=== PATIENT | male | born 1955 | race Caucasian/White ===

== ENCOUNTER 2017-04-30 07:40 | Outpatient (CLI) | payer BC ==
--- NOTE | 2017-04-30 09:18 | CT ---
CONTRAST ENHANCED CT CHEST: Date: 04-30-17 Comparison: 01-29-17 FINDINGS: CT images demonstrate the left upper hilar soft tissue mass appears to have increased in size. 3D henri surements now measure 2.7 x 1.6 x approximately 1.9 cm. Previous 3D measurements measured approximate ly 1.3 x 1.7 x 1.3 cm. No other masses or lesions seen. No evidence of pulmonary parenchymal lesions seen. This has patient has had a previous right sided nephrectomy. IMPRESSION: Moderately enlarging left upper hilar mass. POS: [facility]
[2017-04-30] MEDS ORDERED: Iopamidol 250 51% 100 ML VIAL FS ONE (14:00)
== END 2017-04-30 07:41 | disposition home or self-care (01) ==
LOC: CT 07:40
PROVIDERS: ATTEND Internal Medicine Hematology & Oncology
DX: C64.9 Malignant neoplasm of unspecified kidney, except renal pelvis (principal); C78.39 Secondary malignant neoplasm of other respiratory organs
CPT/HCPCS: 71260

== ENCOUNTER 2017-07-02 08:01 | Outpatient (CLI) | payer BC ==
--- NOTE | 2017-07-02 10:42 | CT ---
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 Follow up of enlarging left lung mass. COMPARISON: Chest CT of 04-30-17 TECHNIQUE: IV iodinated contrast media: 100 ml of Isovue 370 FINDINGS: The left upper hilar soft tissue density mass with heterogeneous attenuation has minimally increased in size. Using different cursor placement than on the previous report, the prior dimensions were appr oximately 2.3 x 1.1 x 2.7 cm. The current dimensions are 2.7 x 1.4 x 2.9 cm. There are no other hilar , pulmonary, or mediastinal suspicious lesions. There is a tiny 0.4 cm noncalcified pulmonary nodule in the right middle lobe (axial image 26 of 68, series 3; coronal image 79 of 173, series 601), which has been stable since the 05-08-16 CT and is benign. No cardiomegaly, pericardial effusion, pleural effusion or pneumothorax. Essentially normal thoracic aorta. Absent right kidney. No adrenal mass. No hepatosplenomegaly. No destructive osseous lesion identified. IMPRESSION: 1. Minimal interval increase in size of the left superior hilar mass since 04-30-17. 2. No new suspicious lesions. 3. Status post right nephrectomy. BLAIR Landin POS: [facility]
[2017-07-02] MEDS ORDERED: Iopamidol 370 76% 100 ML VIAL ONE (14:21)
== END 2017-07-02 08:02 | disposition home or self-care (01) ==
LOC: CT 08:01
PROVIDERS: ATTEND Internal Medicine Hematology & Oncology
DX: C64.9 Malignant neoplasm of unspecified kidney, except renal pelvis (principal); C78.39 Secondary malignant neoplasm of other respiratory organs; R91.8 Other nonspecific abnormal finding of lung field; Z90.5 Acquired absence of kidney
CPT/HCPCS: 71260

== ENCOUNTER 2017-07-18 10:17 | Outpatient (CLI) | payer BC ==
[2017-07-18] MEDS ORDERED: Iopamidol 370 76% 100 ML VIAL ONE (11:50)
--- NOTE | 2017-07-18 13:00 | CT ---
CT HEAD WITH AND WITHOUT CONTRAST: Technique: Multiple axial tomograms were obtained through the head both pre and post IV contrast admi nistration. History: Follow up renal cancer. Assess for metastasis. Comparison: Head CT 06-22-16 FINDINGS: On the precontrast study there is no evidence of infarct, hemorrhage, or mass lesion. On post contrast images there is no abnormal enhancement. Sinuses and mastoids are well aerated. The bony calvarium is unremarkable. IMPRESSION: No acute abnormality. No evidence of metastasis identified. POS: [facility]
--- NOTE | 2017-07-18 13:38 | CT ---
CT ABDOMEN AND PELVIS WITH CONTRAST: Technique: Multiple axial tomograms were obtained through the abdomen and pelvis with IV enhancement. Oral contrast was given. Indications: History of renal neoplasm. malignancy to respiratory system. Assess for metastasis. Lovely rodriguez has a known left hilar mass which has been followed. Recent CT of 07-02-17 reveals mild interval i ncrease. Comparison: Abdomen and pelvic CT, 05-08-16 from [facility]. FINDINGS: There are at least four tiny hypodense lesions seen in the superior liver under the diaphragm. These are primarily in the left lobe but may also be one or two in the superior right lobe. These tiny hypo dense lesions are stable from the prior exam and would be most consistent with tiny hepatic cystic le sions. The liver is otherwise unremarkable. The spleen and pancreas are unremarkable. Stomach and duo denum are unremarkable. Adrenal glands are normal. Patient is post right nephrectomy. The left kidney is unremarkable. The sm all bowel loops appear unremarkable. Colon is unremarkable with scattered diverticula in the left col on. There is some stranding surrounding the mid descending colon at site of 2-3 large diverticula. Th is suggests prior inflammatory change from diverticulitis although I do not confirm active diverticul itis at this time. Recommend clinical correlation regarding left abdominal pain. The stranding at thi s site is new when compared to the prior study. Urinary bladder is mildly distended and unremarkable. Prostate is upper normal size. Aorta is normal caliber. No adenopathy is identified. There is a tiny lymph node seen in the aortocaval space just posterior t o the duodenum on Image 42 measuring 9 mm. This small lymph node is stable from prior exam. There are other tiny subcentimeter lymph nodes which are stable. Osseous structures are unremarkable. IMPRESSION: 1. Diverticula seen in the left colon. There is evidence of mild mural thickening and stranding surro unding one or two large diverticula in the mid left colon. This could represent changes from prior di verticulitis, however, I cannot exclude acute diverticulitis. There is no extraluminal fluid or absce ss. Recommend clinical correlation regarding pain at this site. 2. Tiny nonspecific paraaortic lymph nodes are stable. 3. Tiny low density lesions in the superior liver are unchanged and would be consistent with tiny cys ts. 4. Otherwise no evidence of interval change. POS: [facility]
--- NOTE | 2017-07-18 15:02 | NM ---
WHOLE BODY BONE SCAN: Date: 07/18/17 HISTORY: Kidney cancer, malignant neoplasm of upper respiratory organs. RADIOPHARMACEUTICAL: 30 mCi technetium-99m MDP injected intravenously. COMPARISON: 06/22/16. CORRELATION: CT abdomen/pelvis of 07/18/[address] chest of 07/02/17. FINDINGS: Degenerative changes in the spine, shoulders, knees, ankles, and feet are again seen. No new foci of abnormally increased tracer localization seen in the skeleton. The patient is status post right nephr ectomy. Tracer excretion through the left kidney is within normal limits. IMPRESSION: No evidence of osseous metastatic disease. POS: [facility]
== END 2017-07-18 10:18 | disposition home or self-care (01) ==
LOC: NM 10:17
PROVIDERS: ATTEND Internal Medicine Hematology & Oncology
DX: C64.9 Malignant neoplasm of unspecified kidney, except renal pelvis (principal); C78.39 Secondary malignant neoplasm of other respiratory organs; K57.30 Diverticulosis of large intestine without perforation or abscess without bleeding; K76.89 Other specified diseases of liver
CPT/HCPCS: 70470; 74177; 78306; A9503

== ENCOUNTER 2017-10-14 08:13 | Outpatient (CLI) | payer BC ==
[~2017-10-14 08:13] MED LIST: Iopamidol 370 76% 100 ML VIAL ONE
--- NOTE | 2017-10-14 10:55 | CT ---
CT CHEST WITH CONTRAST: History: Z10.52, Z85.528 malignant neoplasm of kidneys Comparison: CT chest 07-02-17 FINDINGS: Using the same plane of reference, the left suprahilar mass measures approximately 2.8 x 1.9 cm, prev iously 2.6 x 1.4 cm. There are foci of central internal necrosis within the suprahilar mass. There are enlarging AP window lymph nodes measuring up to 9 mm in short axis, previously less than 4 mm in short axis. Smaller pretracheal lymph node appears to have more enhancement than on the prior e xamination, measuring approximately 7 mm in short axis, previously 5 mm. No pericardial effusion. Aor tic size and pulmonary arterial size are both normal. Prior right nephrectomy. 3 mm right upper lobe pulmonary nodule is similar. Small 3 mm nodule in the anterior right lower lobe is similar. There is, however, a new nodule within the posterior segment ri ght upper lobe measuring 3 mm. No pneumothorax. No pleural effusion. No other new nodule. No suspicious lytic or blastic lesion in the skeleton. IMPRESSION: Mild size increase in size left suprahilar mass as well as a new posterior segment right upper lobe p ulmonary nodule. Findings concerning for progression of disease. POS: [facility]
== END 2017-10-14 08:14 | disposition home or self-care (01) ==
LOC: CT 08:13
PROVIDERS: ATTEND Internal Medicine Hematology & Oncology
DX: C78.39 Secondary malignant neoplasm of other respiratory organs (principal); Z85.528 Personal history of other malignant neoplasm of kidney
CPT/HCPCS: 71260; 82565

== ENCOUNTER 2018-01-13 | Outpatient (CLI) | payer BC | END 2018-01-13 08:05 | disposition home or self-care (01) | DX: C78.39 Secondary malignant neoplasm of other respiratory organs (principal); R91.8 Other nonspecific abnormal finding of lung field; Z85.528 Personal history of other malignant neoplasm of kidney ==

== ENCOUNTER 2018-07-11 08:28 | Outpatient (CLI) | payer BC ==
[2018-07-11] MEDS ORDERED: Iopamidol 370 76% 100 ML VIAL ONE (09:47)
--- NOTE | 2018-07-11 11:40 | CT ---
CT THORAX WITH IV CONTRAST: CT ABDOMEN WITH IV CONTRAST: 07/11/2018 HISTORY: Malignant neoplasm of kidney. Secondary malignant neoplasm of other respiratory organs. The patient is post radiation therapy. COMPARISON: 01/13/2018 FINDINGS: THORAX: The previously noted right hilar mass is smaller in size, previously measuring 3.6 cm x 2.4 cm, and now measuring 2.6 cm x 2 cm. However, there has been interval development of rounded opaciti es within the region of the lingula, as well as several areas within the left lower lobe, which could be related to radiation pneumonitis, as there are fiducial markers seen in the left hilar region. Ho wever, infectious pneumonitis is also a possibility. Continued followup is recommended. A few small er, nodular densities, which also demonstrate a patchy appearance, are also seen within the left lowe r lobe. Previously noted tiny 4 mm pulmonary nodule in the right upper lobe (image 24 of 37) and in the later al aspect of the right lower lobe (image 28 of 37) are again seen and are unchanged in size. There is no evidence of lymphadenopathy. ABDOMEN: There are post surgical changes related to right nephrectomy again present. The left kidne y demonstrates a normal CT appearance, and no renal mass is appreciated. The spleen, pancreas, and bilateral adrenal glands demonstrate a normal CT appearance. Again noted are a few tiny, subcentimeter, hypodense areas within the lateral segment of the left hep atic lobe and in the dome of the liver, which are stable and too small to accurately characterize. T hese hypodensities are also stable, compared to a CT abdomen obtained from [facility] on 05/08/2016. Opacified bowel demonstrates a normal CT appearance. There is colonic diverticulosis. Vascular calcifications are seen in the abdominal aorta. There is no evidence of lymphadenopathy, free fluid, or fluid collection seen in the abdomen. Small fat-containing umbilical hernia is present. Incidental note is made of a retroaortic left renal vein. IMPRESSION: 1. The left suprahilar mass is again seen but smaller in size compared to the prior examination. Th ere are fiducial markers now seen adjacent to the mass. 2. Interval development of patchy areas of parenchymal density within the region of the lingula, as well as in the left lower lobe, which could be related to areas of radiation pneumonitis and/or infec tious pneumonitis. Followup is recommended. 3. Stable, 4 mm pulmonary nodules within the right upper lobe and right lower lobe. No new discrete pulmonary nodule is seen. 4. Stable tiny, subcentimeter, hypodense lesions within the left hepatic lobe. 5. Post surgical changes related to right nephrectomy. 6. Colonic diverticulosis. 7. Small fat-containing umbilical hernia. POS: [facility]
== END 2018-07-11 08:29 | disposition home or self-care (01) ==
LOC: SCSCT 08:28 → CT 08:29
PROVIDERS: ATTEND Internal Medicine Hematology & Oncology
DX: C64.9 Malignant neoplasm of unspecified kidney, except renal pelvis (principal); C78.39 Secondary malignant neoplasm of other respiratory organs; K42.9 Umbilical hernia without obstruction or gangrene; K57.30 Diverticulosis of large intestine without perforation or abscess without bleeding; K76.9 Liver disease, unspecified; R91.8 Other nonspecific abnormal finding of lung field; R22.2 Localized swelling, mass and lump, trunk
CPT/HCPCS: 71260; 74160; 82565; Q9967

== ENCOUNTER 2018-12-08 10:33 | Outpatient (CLI) | payer BC ==
--- NOTE | 2018-12-08 12:36 | CT ---
CT chest with IV contrast CT abdomen and pelvis with IV contrast HISTORY: Right renal cancer with nephrectomy. Metastatic disease. Restaging. COMPARISON: 07/12/2018. FINDINGS: The irregular mass at the left hilum now measures 3.6 cm x 2.7 cm on the axial images (prev iously 2.6 cm x 2.0 cm). Areas of parenchymal lung infiltrate predominantly involving the interstitium in the left lower lobe have become larger than on the prior exam. Possibly related to ra diation pneumonitis. The tiny nodules within the right upper lobe and right lower lobe from the previous study are stable. There has developed within the right upper and middle, however, predominantly central parenchymal infiltrate-like opacity that is similar to the left lower lobe abnormality (that has also worsened). At the right posterior lung base, too small foci of groundglass nodularity are 1.3 cm and 1.4 cm greatest diameters. The tiny nonspecific low-density lesions within the left liver lobe are stable. Right kidney is surgi magui absent. Circumaortic left renal vein is again demonstrated. At the body of the left adrenal gland, an oval soft tissue density nodule is now apparent, measuring up to 2.4 cm length by 1.3 cm width. A similar appearing oval homogeneous soft tissue density mass of the right adrenal gland is 2.3 cm x 2.2 cm. IMPRESSION: Slight interval enlargement of the left hilar mass and worsening of coarse, predominantly interstitial infiltrates of the left lower lobe and right upper and middle lobes. New oval groundglass opacities at the right lower lobe could reflect the same interstitial process seen in lar vadim areas of each lung. New soft tissue density metastases associated with each adrenal gland.
--- NOTE | 2018-12-08 12:49 | CT ---
CT chest with IV contrast CT abdomen and pelvis with IV contrast HISTORY: Right renal cancer with nephrectomy. Metastatic disease. Restaging. COMPARISON: 07/12/2018. FINDINGS: The irregular mass at the left hilum now measures 3.6 cm x 2.7 cm on the axial images (prev iously 2.6 cm x 2.0 cm). Areas of parenchymal lung infiltrate predominantly involving the interstitium in the left lower lobe have become larger than on the prior exam. Possibly related to ra diation pneumonitis. The tiny nodules within the right upper lobe and right lower lobe from the previous study are stable. There has developed within the right upper and middle, however, predominantly central parenchymal infiltrate-like opacity that is similar to the left lower lobe abnormality (that has also worsened). At the right posterior lung base, too small foci of groundglass nodularity are 1.3 cm and 1.4 cm greatest diameters. The tiny nonspecific low-density lesions within the left liver lobe are stable. Right kidney is surgi magui absent. Circumaortic left renal vein is again demonstrated. At the body of the left adrenal gland, an oval soft tissue density nodule is now apparent, measuring up to 2.4 cm length by 1.3 cm width. A similar appearing oval homogeneous soft tissue density mass of the right adrenal gland is 2.3 cm x 2.2 cm. IMPRESSION: Slight interval enlargement of the left hilar mass and worsening of coarse, predominantly interstitial infiltrates of the left lower lobe and right upper and middle lobes. New oval groundglass opacities at the right lower lobe could reflect the same interstitial process seen at the larger abnormal areas in each lung. New soft tissue density metastases associated with each adrenal gland. Transcribed Date/Time: 12/08/2018 12:48 PM
== END 2018-12-08 10:34 | disposition home or self-care (01) ==
LOC: SCSCT 10:33
PROVIDERS: ATTEND Internal Medicine Hematology & Oncology
DX: C64.9 Malignant neoplasm of unspecified kidney, except renal pelvis (principal); C78.39 Secondary malignant neoplasm of other respiratory organs; R91.8 Other nonspecific abnormal finding of lung field
CPT/HCPCS: 71260; 74160; Q9967

== ENCOUNTER 2019-01-21 08:29 | Outpatient (CLI) | payer BC ==
[2019-01-21] MEDS ORDERED: Iopamidol 370 76% 100 ML VIAL ONE (09:00)
--- NOTE | 2019-01-21 10:19 | CT ---
CT CHEST WITH CONTRAST: CT ABDOMEN WITH CONTRAST: HISTORY: Metastatic renal cancer. COMPARISON: 12/08/2018 FINDINGS: CHEST: Stable enlarged precarinal lymph node with a preserved fatty hilum, measuring 1.0 x 1.9 cm. No mediastinal mass or hematoma. Heart size is normal. No significant pericardial fluid. Aorta: Normal caliber. No aneurysm, dissection or periaortic fat stranding. Trachea and central bronchi: Clear. Pleural spaces: No pleural effusion. Pneumothorax: None. Right lung: Consolidation with air bronchograms in the inferior aspect of the right upper lobe, worr isome for infiltrate. Additional patchy ground glass, irregular appearing opacities are noted and may represent infiltrative foci. Newly developed opacity with air bronchogram in the right lower lob e, measuring 2.6 x 4.0 cm, may represent a focal infiltrate. New 4 and 5 mm nodules in the right lower lobe. Stable 6 mm nodule in the right upper lobe. New 4 mm nodule in the lateral aspect of th e right upper lobe. Left lung: Stable consolidation with hyperdensities in the left hilum, likely representing post shira tment change. Left hilar opacity measures 3.6 x 4.2 cm. There is extension into the left infrahilar region with a persistent opacity that measures 3.8 x 3.2 cm. There are ground glass opaci ties in the right lower lobe. The degree of alveolar opacification has decreased. Additional patchy ground glass opacities are noted in the left upper lobe. ABDOMEN: Liver, spleen, pancreas and right adrenal gland are essentially unchanged. There is eviden ce of right adrenal gland hyperplasia. There is a nodule in the left adrenal gland measuring 4.0 x 1.6 cm, previously measuring 1.4 x 1.0 cm. No gastrohepatic, retrocrural or periportal lymphadenopat hy. Visualized alimentary canal is unremarkable. Appropriate enhancement of the left kidney. No evidence of obstructive uropathy. Osseous structures: There are no lytic or blastic lesions in the osseous structures. IMPRESSION: 1. Interval development of a ground glass opacity with air bronchograms in the right lower lobe, whi ch may represent a focal infiltrate. There is evidence of new nodules in the right lower lobe, which may represent metastases. There is a new nodule in the right upper lobe, also worrisome for me tastases. 2. Presumed post treatment changes in the left hilum. Improved aeration of the left lower lobe. Re sidual opacities may represent post treatment change. 3. Interval development of consolidation with air bronchograms in the right upper lobe, worrisome fo r infection. 4. Interval increase in size of a left adrenal nodule, worrisome for metastases until proven otherwi se. Transcribed Date/Time: 01/21/2019 10:28 AM
== END 2019-01-21 08:30 | disposition home or self-care (01) ==
LOC: SCSCT 08:29
PROVIDERS: ATTEND Internal Medicine Hematology & Oncology
DX: C64.9 Malignant neoplasm of unspecified kidney, except renal pelvis (principal); C78.39 Secondary malignant neoplasm of other respiratory organs; R91.8 Other nonspecific abnormal finding of lung field; E27.8 Other specified disorders of adrenal gland
CPT/HCPCS: 71260; 74160; Q9967

== ENCOUNTER 2019-02-02 12:31 | Outpatient (CLI) | payer BC ==
--- NOTE | 2019-02-02 13:09 | RAD ---
EXAM: Chest 2 views: HISTORY: Malignant neoplasm of the kidney; cough COMPARISON: CT chest 01/21/2019 FINDINGS: There is a normal-sized cardiomediastinal silhouette. Consolidation is seen in the right upper and lo wer lobes. No pleural effusion is seen. The bones are unremarkable. IMPRESSION: Right-sided pulmonary infiltrates
--- NOTE | 2019-02-02 14:05 | CT ---
Exam: Pre and postcontrast head CT COMPARISON: 07/18/2017 HISTORY: Malignant neoplasm of the kidney with metastases FINDINGS: Noncontrast head CT: No parenchymal hemorrhage No extra-axial hematoma No midline shift Basilar cisterns are patent Brain volume is age-appropriate Cortical wilder-white matter differentiation is preserved No evidence of hydrocephalus Calvarium is intact Adequate aeration of the sinuses and air cells Postcontrast brain CT: No pathologic enhancement of the brain IMPRESSION: 1. No pathologic enhancement the brain parenchyma 2. No acute intracranial process
== END 2019-02-02 12:32 | disposition home or self-care (01) ==
LOC: SCSCT 12:31
PROVIDERS: ATTEND Internal Medicine Hematology & Oncology
DX: C64.9 Malignant neoplasm of unspecified kidney, except renal pelvis (principal); C78.39 Secondary malignant neoplasm of other respiratory organs; R05 Cough; R91.8 Other nonspecific abnormal finding of lung field
CPT/HCPCS: 70470; 71046; Q9967

== ENCOUNTER 2019-02-09 09:02 | Outpatient (CLI) | payer BC ==
--- NOTE | 2019-02-09 11:08 | RAD ---
PA AND LATERAL CHEST: HISTORY: Pneumonia. Evaluation followup. COMPARISON: 02/02/2019 study. FINDINGS: Heart size is within normal limits. Surgical clips are seen in the left hilar region. The pleural a nd parenchymal changes in the left base are stable. The right-sided infiltrative changes of the righ t upper and lower lung agustin show some mild improvement. IMPRESSION: Slight improvement to the right-sided infiltrative lung change. Findings telephoned to Dr. Pena. CODE CR POS: [facility]
== END 2019-02-09 09:03 | disposition home or self-care (01) ==
LOC: SCSRAD 09:02
PROVIDERS: ATTEND Internal Medicine Hematology & Oncology
DX: R91.8 Other nonspecific abnormal finding of lung field (principal)
CPT/HCPCS: 71046

== ENCOUNTER 2019-04-01 10:34 | Outpatient (CLI) | payer BC ==
--- NOTE | 2019-04-01 11:14 | RAD ---
CHEST PA AND LATERAL: HISTORY: Cancer. Right lung infiltrate. COMPARISON: 02/09/2019, 02/02/2019. FINDINGS: Heart: Normal cardiac silhouette. Aorta: Unremarkable. Pulmonary vessels: Normal. Costophrenic angles: Costophrenic angles are clear. Lungs: Redemonstration of infiltrates in the right lung. The degree of opacification has progressed w hen compared to the most recent prior exam. Additionally, there appear to be linear opacities in the left perihilar region which appear to be stable. Surgical clips project over the left hilum. Pneumothorax: No pneumothorax. Osseous structures: No osseous abnormalities. IMPRESSION: Worsening opacification the right lung. CODE T Transcribed Date/Time: 04/01/2019 12:13 PM
== END 2019-04-01 10:35 | disposition home or self-care (01) ==
LOC: SCSRAD 10:34
PROVIDERS: ATTEND Internal Medicine Hematology & Oncology
DX: R91.8 Other nonspecific abnormal finding of lung field (principal)
CPT/HCPCS: 71046

== ENCOUNTER 2019-05-05 08:29 | Outpatient (CLI) | payer BC ==
--- NOTE | 2019-05-05 12:14 | CT ---
CT CHEST WITH IV CONTRAST: CT ABDOMEN WITH IV CONTRAST: CT PELVIS WITH IV CONTRAST: HISTORY: Malignant neoplasm of kidney. Secondary malignant neoplasm of other respiratory organs. COMPARISON: 01/21/2019 FINDINGS: No evidence of mediastinal, hilar or axillary mass or lymphadenopathy is seen. No pleural or pericard ial effusions are noted. The patchy areas of consolidation in the right upper lobe demonstrate interval improvement however th ere are new smaller patchy areas of ground glass opacities in the lungs bilaterally which are new sin ce the last exam. A patchy area of consolidation in the left upper lobe is also new. A few new nodules are noted in the left upper lobe and lingula, measuring up to 1 cm. There are new patchy opacities in the lung bases. Left hilar/perihilar consolidative change with tiny hyperdensities are stable, likely representing po st treatment change. The spleen and pancreas appear normal. Small low density lesions in the liver are stable. No calcifie d gallstones are seen. No free air, free fluid or lymphadenopathy is seen in the abdomen or pelvis. The patient is post right nephrectomy. 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 The right adrenal mass measures 4 x 2.5 cm (previously 2.5 x 2 cm) and the left adrenal mass measures 2.5 x 3 cm (previously 1.4 x 1.6 cm). The small bowel loops are not abnormally dilated. There is mild colonic diverticulosis. The prostate is enlarged. A normal appearing appendix is seen. There are vascular calcifications without evidence of aneurysmal dilatation of the thoracoabdominal a odin. There are degenerative changes in the spine. No osteolytic or osteoblastic lesions are seen. IMPRESSION: 1. Mixed response to therapy in the chest. 2. Interval increase in size of the adrenal masses since the previous study. Discussed over the telephone with Dr. Arti Pena at 12:02 p.m. CODE CR POS: [facility]
== END 2019-05-05 08:30 | disposition home or self-care (01) ==
LOC: SCSCT 08:29
PROVIDERS: ATTEND Internal Medicine Hematology & Oncology
DX: C78.39 Secondary malignant neoplasm of other respiratory organs (principal); C64.9 Malignant neoplasm of unspecified kidney, except renal pelvis; E27.8 Other specified disorders of adrenal gland
CPT/HCPCS: 71260; 74177

== ENCOUNTER 2019-05-06 12:17 | Outpatient (CLI) | payer BC ==
--- NOTE | 2019-05-06 15:03 | RAD ---
XR Chest Pa Lat STANDARD History: Right sided pulmonary infiltrates Comparison: CT prior day Findings: Similar appearances scattered pulmonary infiltrates. Large left pericardiophrenic fat pad. No pneumothorax. No effusion. No acute osseous abnormality. Impression: Similar examination of the chest. Organizing pneumonia is a possibility.
== END 2019-05-06 12:18 | disposition home or self-care (01) ==
LOC: BICRAD 12:17
PROVIDERS: ATTEND Internal Medicine Hematology & Oncology
DX: R91.8 Other nonspecific abnormal finding of lung field (principal)
CPT/HCPCS: 71046

== ENCOUNTER 2019-05-07 10:06 | Outpatient (CLI) | payer BC ==
--- NOTE | 2019-05-07 11:15 | RAD ---
XR Tib Fib Lt Leg 2 View INDICATION: Abnormality seen on a DVT study of the left lower extremity; concern for a soft tissue le mickey involving the cortex of the medial left tibial shaft. History of renal cell carcinoma. Comparison: Left lower extremity DVT ultrasound dated May 07, 2019. FINDINGS: Bones: There is a cortical osteolysis involving the medial left tibial shaft which in conjunction wit h the ultrasound evaluation of the left foreleg is consistent with cortical osteolytic metastatic lesion. The lesion measures 3 cm in length. Joints: There is mild osteoarthrosis of the left knee. Soft tissues: No radiopaque foreign body is evident. IMPRESSION: Cortical osteolytic lesion involving the medial left mid tibial shaft consistent with cor tical osteolytic metastatic lesion.
--- NOTE | 2019-05-07 11:18 | ULT ---
LEFT LOWER EXTREMITY DOPPLER VENOUS ULTRASOUND PROVIDED CLINICAL HISTORY: History of renal cell carcinoma; left leg pain TECHNIQUE: Grayscale and color Doppler sonography with spectral analysis was performed of the left common femora l, femoral, popliteal, posterior tibial, greater saphenous and profunda femoral veins. FINDINGS: There is normal compression, flow and augmentation seen within the deep venous structures o f the left lower extremity. There is a 3.6 x 2.0 x 1 cm vascularized soft tissue mass eroding into the medial cortex of the mid l eft tibia suspicious for a cortical base metastatic lesion. IMPRESSION: No sonographic evidence for left lower extremity deep venous thrombosis. 3.6 cm vascular soft tissue mass eroding into the medial cortex of the mid left tibia consistent with a cortical based metastatic lesion. Radiographs recommended to confirm the abnormality. Findings were called to Dr. Pena at 10:46 AM on May 07, 2019.
== END 2019-05-07 10:07 | disposition home or self-care (01) ==
LOC: ULT 10:06
PROVIDERS: ATTEND Internal Medicine Hematology & Oncology
DX: M79.605 Pain in left leg (principal); R60.0 Localized edema; C78.39 Secondary malignant neoplasm of other respiratory organs; Z85.528 Personal history of other malignant neoplasm of kidney

== ENCOUNTER 2019-05-18 10:17 | Outpatient (CLI) | payer BC ==
--- NOTE | 2019-05-18 14:24 | NM ---
Exam: WHOLE BODY BONE SCAN: HISTORY: Malignant neoplasm of the kidney. Abnormal left tib-fib radiograph noted. COMPARISON: 07/18/2017. TECHNIQUE: Patient administered 32 mCi of technetium 99m intravenously. Whole body delayed imaging wa s performed. FINDINGS: Photopenia compatible with right nephrectomy. Physiologic distribution of the radiotracer. Stable deg enerative changes. Uptake of radiotracer in the left tibia, corresponding to the radiographic abnormality. This finding was not present on the previous examination. No additional areas of osseous metastasis. IMPRESSION: Solitary metastatic focus in left tibia. Transcribed Date/Time: 05/18/2019 2:47 PM
== END 2019-05-18 10:18 | disposition home or self-care (01) ==
LOC: NM 10:17
PROVIDERS: ATTEND Internal Medicine Hematology & Oncology
DX: M89.562 Osteolysis, left lower leg (principal); C79.51 Secondary malignant neoplasm of bone; C78.39 Secondary malignant neoplasm of other respiratory organs
CPT/HCPCS: 78306; A9503

== ENCOUNTER 2019-08-17 08:31 | Outpatient (CLI) | payer BC ==
--- NOTE | 2019-08-17 12:23 | CT ---
CT CHEST WITH IV CONTRAST CT ABDOMEN WITH IV CONTRAST CT PELVIS WITH IV CONTRAST: HISTORY: Malignant neoplasm of kidney. Secondary malignant neoplasm of other respiratory organs. COMPARISON: 05/05/2019. FINDINGS: No mediastinal, hilar, or axillary mass or lymphadenopathy is seen. No pleural or pericardial effusi ons are identified. The patchy areas of consolidation in the lung agustin bilaterally and ground-glass infiltrates seen on the previous exam demonstrate interval improvement with mild residuality. There is a 2.1 cm mass-li ke density in the left infrahilar region. The small low-density lesions in the liver are stable. The spleen and pancreas are normal. Adrenal masses are reduced in size measuring 2.5 x 1.5 cm on the right and 2.2 x 1.7 cm on the left. No calc ified gallstones are seen. No free air, free fluid, or lymphadenopathy is seen in the abdomen or pelvis. The patient is status post right nephrectomy. 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 Small low-density lesions in t he left kidney are stable. The small bowel loops are not abnormally dilated. There are vascular calcifications without evidence of aneurysmal dilatation of the thoracoabdominal aorta. There are degenerative changes in the spine . No osteolytic or osteoblastic lesions are seen. IMPRESSION: Interval improvement since 05/05/2019. POS: MORIAH
[2019-08-17 12:53] LABS: ALT (SGPT) 31 U/L (8-55); AST (SGOT) 25 U/L (5-34); Albumin 4.2 g/dL (3.4-4.8); Alkaline Phosphatase 82 U/L (40-110); Anion Gap 16 mmol/L (10-20); BUN (Urea Nitrogen) 12 mg/dL (8.4-25.7); Bilirubin, Total 0.6 mg/dL (0.2-1.2); Calc. Creatinine Clearance 0 mL/min (70-130); Carbon Dioxide 22 mmol/L (23-31); Chloride 105 mmol/L (98-107); Estimated GFR-MDRD 72; Globulin 2.7 g/dL (2.4-3.5); Glucose 104 mg/dL (80-115); Potassium 4.4 mmol/L (3.5-5.1); Protein, Total 6.9 g/dL (5.8-8.1); Sodium 139 mmol/L (136-145)
== END 2019-08-17 08:32 | disposition home or self-care (01) ==
LOC: SCSCT 08:31
PROVIDERS: ATTEND Internal Medicine Hematology & Oncology
DX: C78.39 Secondary malignant neoplasm of other respiratory organs (principal); C64.9 Malignant neoplasm of unspecified kidney, except renal pelvis
CPT/HCPCS: 71260; 74177; 80053; 82533

== ENCOUNTER 2019-11-23 08:11 | Outpatient (CLI) | payer BC ==
--- NOTE | 2019-11-23 09:59 | CT ---
EXAM: CT chest, abdomen, and pelvis with IV contrast: HISTORY: Follow-up malignant neoplasm of kidney. Secondary malignant neoplasm of other respiratory organs. COMPARISON: 08/17/2019 FINDINGS: CT THORAX: Lungs: There has been interval resolution of the groundglass densities in the left upper lobe. Minima l groundglass density is present in the right middle lobe, but this has improved from prior exam. Previously seen nodular masslike density in the left infrahilar region is not appreciated on today's exam. Stable area of consolidation in the left upper lobe and left hilar location is again present with stable punctate metallic density in this region. This may be related to prior treatment. No endo bronchial lesion is appreciated on this exam. Linear areas of scarring are again seen in each lower lobe. Pleura: No pleural effusion. Lymph nodes: No lymphadenopathy. Mediastinum: Minimal vascular calcifications and coronary arteries thoracic aorta. Chest wall: No abnormalities CT ABDOMEN AND PELVIS: Liver: Multiple stable subcentimeter hypodense lesions within the left hepatic lobe dome of the liver . No new hepatic lesions are seen. Gallbladder: Within normal limits. Pancreas: A subcentimeter hypodense lesion is seen in the tail of the pancreas. This is not appreciat ed on prior study or on exam in 2019. Spleen: Within normal limits. Adrenal glands: Left adrenal nodule is smaller in size measuring 1.8 cm x 1.6 cm with previous measur ement of 2.2 cm x 1.7 cm. Right adrenal lesion is also measuring smaller in size with measurement of 2.1 cm x 1.2 cm on today's exam and previous measurement of 2.5 cm x 1.5 cm. Kidneys: Few stable subcentimeter hypodense lesions are again seen in the midportion left kidney too small to characterize. Evidence of right nephrectomy is again seen. Cardiac size Urinary Bladder: Incompletely distended. Reproductive organs: Within normal limits for patient's age. Bowel: There is colonic diverticulosis. Loops of small bowel are normal in caliber. Aorta: Minimal vascular calcifications are seen. Incidental note is made of an retroaortic left renal vein. Adenopathy:No lymphadenopathy within the abdomen or pelvis. Peritoneum: No free fluid or fluid collection is seen. No free intraperitoneal gas is identified. Abdominal wall: Tiny fat-containing umbilical hernia. Osseous structures: Mild degenerative changes in the spine. No suspicious lytic or sclerotic osseous lesion is identified. IMPRESSION: 1. Resolution of groundglass opacities in the left upper lobe with interval improvement in groundglas s opacity in the right middle lobe. Persistent area of consolidation left hilar region/left upper lobe is present which again may be related to posttreatment changes. 2. Previously seen left infrahilar nodular density is not seen on the current study. 3. Subcentimeter hypodense lesion pancreatic tail not seen on prior exams. This is difficult to tyrese cterize, and continued follow-up evaluation is recommended. 4. Mild interval decrease in bilateral adrenal lesions. 5. Stable subcentimeter hepatic hypodense lesions. 6. Right nephrectomy.
--- NOTE | 2019-11-23 12:04 | RAD ---
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 The lesion previously measured in April 2019, 3.1 x 1.1 cm Joints: There is mild osteoarthrosis involving the left knee joint. There is slightly more prominent peripheral osteophytes seen off the lateral margin of the lateral femoral tibial joint compartment. Soft tissues: No radiopaque foreign body is evident. IMPRESSION: Slight interval enlargement of the osteolytic lesion involving the cortex of the left mid shaft tibia.
== END 2019-11-23 08:12 | disposition home or self-care (01) ==
LOC: SCSCT 08:11
PROVIDERS: ATTEND Internal Medicine Hematology & Oncology
DX: C64.9 Malignant neoplasm of unspecified kidney, except renal pelvis (principal); C78.39 Secondary malignant neoplasm of other respiratory organs
CPT/HCPCS: 71260; 74177; 82565

== ENCOUNTER 2020-03-02 08:34 | Outpatient (CLI) | payer BC ==
--- NOTE | 2020-03-02 10:39 | CT ---
EXAM: CT chest, abdomen, and pelvis with IV contrast: HISTORY: Malignant neoplasm of kidney. Follow-up evaluation. COMPARISON: 11/23/2019 FINDINGS: CT THORAX: Lungs: Stable area of consolidation with metallic density in the left hilar region in the left upper lobe is unchanged when compared to prior exam and also unchanged study on 08/17/2019. The parenchymal changes and pleural thickening along the major fissure in the left lower lobe is again se en also stable compared to prior studies. Subtle area of groundglass density in the right middle lobe is again seen and unchanged from prior exams. A stable tiny previously 4 mm pleural-based densit y in the right middle lobe along the minor fissure is again seen with stable 3 mm subpleural nodular density seen in the lateral aspect superior segment right lower lobe. No new pulmonary nodule or mass is seen. Pleura: No pleural effusion. Lymph nodes: No lymphadenopathy. Mediastinum: Minimal vascular calcifications in the aortic arch. Mediastinal structures otherwise hav e a normal CT appearance. Chest wall: No abnormalities CT ABDOMEN AND PELVIS: Liver: Multiple stable subcentimeter hypodense lesions are again seen in the left hepatic lobe. No ne w hepatic lesion is seen. Gallbladder: Within normal limits. \ Pancreas: Previously described subcentimeter hypodense lesion in the pancreatic tail is less percepti ble on today's exam compared to prior study but does persist. Spleen: Within normal limits. Adrenal glands: The right adrenal nodule is again seen measuring slightly larger in size in transvers e dimensions. This nodule measures 2.2 cm x 1.7 cm and on study of 11/23/2019 measured 2.1 cm x 1.2 cm. However, this nodule measured 4 cm x 2.6 cm on study of 05/05/2019. The left adrenal nodule is la rger in size measuring 2.6 cm x 2.3 cm with previous measurement of 1.8 cm x 1.6 cm. Kidneys: Evidence of right nephrectomy. Left kidney demonstrates a normal CT appearance. Urinary Bladder: The urinary bladder is unremarkable. Reproductive organs: Within normal limits for patient's age. Bowel: A few scattered colonic diverticuli are seen. Loops of small bowel are normal in caliber. Vessels: Mild atherosclerotic vascular calcifications and plaque in the abdominal aorta and iliac art eries. Incidental note of a left retroaortic renal vein is again seen. Adenopathy:No enlarged lymph nodes are seen by CT size criteria. Peritoneum: No free fluid or fluid collection is seen. No free intraperitoneal gas is identified. Abdominal wall: Small fat-containing umbilical hernia again present. Osseous structures: No suspicious lytic or sclerotic osseous lesions are identified. IMPRESSION: 1. Overall stable radiographic appearance of the chest with parenchymal changes again seen in the lef t hilar region as well as minimal groundglass density in the right middle lobe with tiny pleural-based nodular densities measuring less than 4 mm along the minor fissure and right lateral jaqueline ng base. No new pulmonary nodule or mass is seen in the lungs. 2. Increased size of bilateral adrenal lesions compared to study on 11/23/2019. 3. Stable subcentimeter hepatic hypodense lesions. 4. Right nephrectomy. 6. Low-density lesion pancreatic tail is again seen but less perceptible on the current exam.
[2020-03-02 11:00] LABS: #Basophils 0.1 thou/uL (0.0-0.2); #Eosinphils 0.2 thou/uL (0.0-0.7); #Lymphocytes 1.5 thou/uL (1.20-3.40); #Monocytes 0.6 thou/uL (0.11-0.59); #Neutrophils 4.5 thou/uL (1.40-6.50); %Basophils 0.8 % (0.0-1.0); %Eosinophils 3.3 % (0.0-10.0); %Lymphocytes 21.6 % (21.0-51.0); %Monocytes 8.2 % (0.0-10.0); %Neutrophils 66.1 % (42.0-75.0); Mean Corpuscular HGB CONC 33.1 g/dL (32.0-36.0); Mean Corpuscular Hemoglobin 30.7 pg (27.0-31.0); Mean Corpuscular Volume 92.9 fL (78.0-98.0); Mean Platelet Volume 7.5 fL (7.4-10.4); Platelet Count 344 thou/uL (130-400); RBC Distribution Width 12.6 % (11.5-14.5); Red Blood Cell (RBC) Count 4.87 mill/uL (4.70-6.10); White Blood Cell (WBC) Count 6.8 thou/uL (4.8-10.8)
[2020-03-02 11:30] LABS: ALT (SGPT) 25 U/L (8-55); AST (SGOT) 21 U/L (5-34); Albumin 4.5 g/dL (3.4-4.8); Alkaline Phosphatase 85 U/L (40-110); Anion Gap 15 mmol/L (10-20); BUN (Urea Nitrogen) 17 mg/dL (8.4-25.7); Bilirubin, Total 0.5 mg/dL (0.2-1.2); Calc. Creatinine Clearance 0 mL/min (70-130); Calcium 9.2 mg/dL (7.8-10.44); Carbon Dioxide 25 mmol/L (23-31); Chloride 104 mmol/L (98-107); Estimated GFR-MDRD 50; Globulin 2.7 g/dL (2.4-3.5); Glucose 110 mg/dL (80-115); Protein, Total 7.2 g/dL (5.8-8.1); Sodium 140 mmol/L (136-145)
== END 2020-03-02 08:35 | disposition home or self-care (01) ==
LOC: SCSCT 08:34
PROVIDERS: ATTEND Internal Medicine Hematology & Oncology
DX: C64.9 Malignant neoplasm of unspecified kidney, except renal pelvis (principal); C78.39 Secondary malignant neoplasm of other respiratory organs; K76.9 Liver disease, unspecified; K86.89 Other specified diseases of pancreas
CPT/HCPCS: 71260; 74177; 80053; 84443; 85025

== ENCOUNTER 2020-05-30 10:37 | Emergency (ER) | payer BC ==
[2020-05-30 18:25] LABS: SARS-CoV-2 MS2 Positive; SARS-CoV-2 N Gene Negative; SARS-CoV-2 S Gene Negative; SARS-CoV-2 by NAA Not Detected (NotDetected); SARS-CoV-2 orf1ab Negative
== END 2020-05-30 11:37 | disposition home or self-care (01) ==
LOC: ERS 10:37
DX: R50.9 Fever, unspecified (principal); R09.81 Nasal congestion; Z20.822 Contact with and (suspected) exposure to COVID-19; I10 Essential (primary) hypertension
CPT/HCPCS: 87635; 99283; U0003

== ENCOUNTER 2021-09-25 09:25 | Outpatient (CLI) | payer BC | END 2021-09-25 09:26 | disposition home or self-care (01) | LOC: CT 09:25 | PROVIDERS: ATTEND Internal Medicine Hematology & Oncology | DX: C64.9 Malignant neoplasm of unspecified kidney, except renal pelvis (principal); C78.39 Secondary malignant neoplasm of other respiratory organs | CPT/HCPCS: 71260; 74177; 78306; 82565; A9503; Q9967 ==

== ENCOUNTER 2022-08-08 07:56 | Outpatient (CLI) | payer BC ==
[2022-08-08] MEDS ORDERED: Iopamidol 370 76% 100 ML VIAL ONE (09:03)
== END 2022-08-08 07:57 | disposition home or self-care (01) ==
LOC: CT 07:56
PROVIDERS: ATTEND Internal Medicine Hematology & Oncology
DX: C78.39 Secondary malignant neoplasm of other respiratory organs (principal); C64.9 Malignant neoplasm of unspecified kidney, except renal pelvis; Z85.528 Personal history of other malignant neoplasm of kidney
CPT/HCPCS: 71260; 74177; 82565; Q9967

== ENCOUNTER 2022-12-05 08:06 | Outpatient (CLI) | payer BC ==
[2022-12-05] MEDS ORDERED: Iopamidol 370 76% 100 ML VIAL ONE (11:12)
== END 2022-12-05 08:07 | disposition home or self-care (01) ==
LOC: CT 08:06
PROVIDERS: ATTEND Internal Medicine Hematology & Oncology
DX: C64.9 Malignant neoplasm of unspecified kidney, except renal pelvis (principal); C78.39 Secondary malignant neoplasm of other respiratory organs; K86.89 Other specified diseases of pancreas; Z79.899 Other long term (current) drug therapy
CPT/HCPCS: 70470; 71260; 74177; 82565; Q9967

== ENCOUNTER 2025-05-04 08:33 | Outpatient (CLI) | payer MEDICARE, OTHER ==
[2025-05-04 09:22] LABS: Estimated GFR - POC 60.0
[2025-05-04] MEDS ORDERED: Iopamidol 370 76% 100 ML VIAL ONE (11:48)
== END 2025-05-04 08:34 | disposition home or self-care (01) ==
LOC: CT 08:33
PROVIDERS: ATTEND Internal Medicine Hematology & Oncology
DX: C78.39 Secondary malignant neoplasm of other respiratory organs (principal); C64.9 Malignant neoplasm of unspecified kidney, except renal pelvis; R91.8 Other nonspecific abnormal finding of lung field; K63.89 Other specified diseases of intestine; K86.89 Other specified diseases of pancreas; N28.9 Disorder of kidney and ureter, unspecified; Z90.5 Acquired absence of kidney; Z79.899 Other long term (current) drug therapy; Z85.528 Personal history of other malignant neoplasm of kidney; Z98.890 Other specified postprocedural states
CPT/HCPCS: 36415; 70470; 71260; 74177; 82565; Q9967